=== PATIENT | female | born 1945 | race Caucasian/White ===

== ENCOUNTER 2019-02-15 18:20 | Emergency (ER) | payer OTHER ==
[~2019-02-15] VITALS: Ht 167.6 cm; Wt 108.0 kg
[~2019-02-15 18:20] MED LIST: AMLO10TA8 PO; ASCO500T2 PO; ASPI-612 PO; CA C1TAB28 PO; CARV12.511 PO; GLUC-12 PO; INSU100I17 SQ; INSU100I18 SQ; LEVO750T31 PO; LOSA100T14 PO; LOVA40TA2 PO; OMEG300C PO; VITA1TAB19 PO
--- NOTE | 2019-02-15 21:34 | RAD ---
KUB INDICATION: Constipation. COMPARISON: None. TECHNIQUE: Supine view of the abdomen was obtained. FINDINGS: Abdomen: Nonobstructive bowel gas pattern. No free air on this limited supine image. Moderate colonic stool burden Lower Chest: Limited view of the lower chest demonstrates no acute abnormality. Skeletal Structures and Soft Tissues: Incompletely characterized lumbar spondylosis. IMPRESSION: Nonobstructive bowel gas pattern. Moderate colonic stool burden. Electronically signed by: Maurice Castellon MD (02/15/2019 9:31 PM) [facility]
[2019-02-15 22:13] VITALS: BP 186/74
--- NOTE | 2019-02-15 22:51 | PHYS DOC ---
Past Medical History Past Medical History: Asthma, Diabetes-Type II, Endometriosis, High Laila sterol, Hypertension, MRSA, Pneumonia, Other Additional Past Medical Histor: BLADDER INFECTION (TAQUERIA PADILLA APRN) Past Surgical History: Hysterectomy (TAQUERIA PADILLA APRN) Alcohol Use: None Drug Use: None (TAQUERIA PADILLA APRN) Attending Signature I have participated in the care of this patient and I have reviewed and agree with all pertinent clinical information above including history, exam, and recommendations. (TONYA RINCON MD) Adult General Chief Complaint Chief Complaint: CONTISPATION HPI HPI Patient is a 73 year old female, accompanied by her daughters, who presents to the emergency department with complaints of severe rectal pressure. Patient states she has been unable to have a bowel movement for the last 3 days. She denies any rectal bleeding, she reports leaking liquid stool after using a fleets enema at home with no relief of her symptoms. She denies any abdominal pain, nausea, vomiting, dysuria, increased urinary frequency, or hematuria. She denies any complaints of chest pain, palpitations, shortness of breath, or wheezing. Currently she rates her discomfort a 10 out of 10 on the pain scale and describes it as rectal pressure. She denies any alleviating factors. (TAQUERIA PADILLA APRN) Review of Systems Review of Systems Constitutional: Denies fever or chills [] Eyes: Denies redness, or eye pain [] HENT: Denies nasal congestion or sore throat [] Respiratory: Denies cough or shortness of breath [] Cardiovascular: No additional information not addressed in HPI [] GI: Denies abdominal pain, nausea, vomiting, or diarrhea; see HPI : Denies dysuria or hematuria [] Musculoskeletal: Denies back pain Integument: Denies rash or skin lesions [] Neurologic: Denies headache Complete systems were reviewed and found to be within normal limits, except as documented in this note. (TAQUERIA PADILLA APRN) Allergies Allergies Allergies Coded Allergies Type Severity Reaction Last Updated Verified latex Allergy Intermediate 06/29/14 Yes levofloxacin Allergy Unknown 02/15/19 Yes Sulfa (Sulfonamide Antibiotics) Adverse Reaction Severe swelling 07/02/14 Yes (TONYA RINCON MD) Physical Exam Physical Exam Constitutional: Well developed, well nourished, no acute distress, non-toxic appearance. [] HENT: Normocephalic, atraumatic, bilateral external ears normal, nose normal. [] Eyes: PERRLA, EOMI, conjunctiva normal, no discharge. [] Neck: Normal range of motion, no tenderness, supple, no stridor. [] Cardiovascular:Heart rate regular rhythm, no murmur [] Lungs & Thorax: Bilateral breath sounds clear to auscultation [] Abdomen: Bowel sounds normal, soft, no tenderness, no masses, no pulsatile masses. Rectal Exam: Normal tone, Positive control, large amount of fecal impaction present Stool: Brown Skin: Warm, dry, no erythema, no rash. [] Back: No tenderness Extremities: No cyanosis, ROM intact, no edema. [] Neurologic: Alert and oriented X 3, no focal deficits noted. [] Psychologic: Affect normal, judgement normal, mood normal. [] (TAQUERIA PADILLA APRN) Current Patient Data Vital Signs Vital Signs Date Time Temp Pulse Resp B/P (MAP) Pulse Ox O2 Delivery O2 Flow Rate FiO2 02/15/19 22:13 88 20 186/74 (111) 97 Room Air 02/15/19 19:05 98.8 98.8 (TONYA RINCON MD) EKG EKG [] (TAQUERIA PADILLA APRN) Radiology/Procedures Radiology/Procedures PROCEDURE: KUB KUB INDICATION: Constipation. COMPARISON: None. TECHNIQUE: Supine view of the abdomen was obtained. FINDINGS: Abdomen: Nonobstructive bowel gas pattern. No free air on this limited supine image. Moderate colonic stool burden Lower Chest: Limited view of the lower chest demonstrates no acute abnormality. Skeletal Structures and Soft Tissues: Incompletely characterized lumbar spondylosis. IMPRESSION: Nonobstructive bowel gas pattern. Moderate colonic stool burden.[] (TAQUERIA PADILLA APRN) Course & Med Decision Making Course & Med Decision Making Pertinent Labs and Imaging studies reviewed. (See chart for details) dx: fecal impaction, constipation A large amount of stool was removed during the rectal exam by myself. Patient reported relief of rectal pressure following manual disimpaction. KUB revealed a normal bowel gas pattern with a large amount of stool present. Patient was give n a milk of molasses enema in the emergency department that was followed by a large bowel movement. Patient reported relief of her symptoms and feeling better after these interventions. The patient was encouraged to take 1 capful of MiraLAX in 8 ounces of water or juice twice daily until her stools are normal. She was also instructed to follow-up with her primary care doctor in the next 1- 2 days. Return to the ER symptoms worsen. Patient verbalized an understanding of home care, medications, follow-up, and return to ED instructions and was in agreement with the plan of care. [] (TAQUERIA PADILLA APRN) Dragon Disclaimer Dragon Disclaimer This electronic medical record was generated, in whole or in part, using a voice recognition dictation system. (TAQUERIA PADILLA APRN) Departure Departure Impression: Primary Impression: Constipation Additional Impression: Fecal impaction in rectum Disposition: 01 HOME, SELF-CARE Condition: STABLE Referrals: MONICO NGUYEN MD (PCP) Patient Instructions: Constipation, Adult, [id number], Fecal Impaction Additional Instructions: Take 1 capful of MiraLAX in 8 ounces of water or juice twice a day until your stools have normalized. Follow-up with your primary care doctor in 1-2 days for reevaluation. Return to the ER if her symptoms worsen. Problem Qualifiers Primary Impression: Constipation Constipation type: unspecified constipation type Qualified Codes: K59.00 - Constipation, unspecified TAQUERIA PADILLA APRN Feb 15, 2019 22:51 TONYA RINCON MD Feb 16, 2019 04:01
[2019-02-19] MEDS ORDERED: VENTOLIN HFA18 GM INH (20:40)
[2019-02-19] MEDS ORDERED: ASPI-630 PO (20:40)
[2019-02-19] MEDS ORDERED: INSU100C4 SQ (20:40)
[2019-02-19] MEDS ORDERED: HYDR12.58 PO (20:40)
[2019-02-19] MEDS ORDERED: LOSA-73 PO (20:40)
[2019-02-19] MEDS ORDERED: ATOR20TA58 PO (20:40)
[2019-02-19] MEDS ORDERED: OMEG-165 PO (20:40)
[2019-02-19] MEDS ORDERED: INSU100V13 SQ (20:40)
[2019-02-19] MEDS ORDERED: GLUC1CAP18 PO (20:40)
[2019-02-19] MEDS ORDERED: METF500T16 PO (20:40)
[2019-02-19] MEDS ORDERED: UBID100T5 PO (20:40)
[2019-02-19] MEDS ORDERED: MONT10TA10 PO (23:14)
[2019-02-22] MEDS ORDERED: INSU100I11 SQ (12:18)
[2019-02-22] MEDS ORDERED: CEFD300C PO (12:18)
[2019-02-22] MEDS ORDERED: BUDE0.5A NEB (12:18)
[2019-02-22] MEDS ORDERED: LACT1CAP19 PO (12:18)
== END 2019-02-15 22:56 | disposition home or self-care (01) ==
LOC: ER 18:20
DX: K56.41 Fecal impaction (principal); E11.9 Type 2 diabetes mellitus without complications; E78.00 Pure hypercholesterolemia, unspecified; I10 Essential (primary) hypertension; J45.909 Unspecified asthma, uncomplicated; Z86.14 Personal history of Methicillin resistant Staphylococcus aureus infection; Z86.19 Personal history of other infectious and parasitic diseases; Z90.710 Acquired absence of both cervix and uterus; Z88.1 Allergy status to other antibiotic agents; Z88.2 Allergy status to sulfonamides; Z91.040 Latex allergy status
CPT/HCPCS: 74018; 96365; 96366; 96375; 96376; 99284; 99285-25

== ENCOUNTER 2019-02-26 12:22 | Emergency (ER) | payer OTHER ==
[~2019-02-26] VITALS: Ht 167.6 cm; Wt 106.6 kg
[~2019-02-26 12:22] MED LIST changes: +ASPI-630 PO; +ATOR20TA58 PO; +BUDE0.5A NEB; +CEFD300C PO; +GLUC1CAP18 PO; +HYDR12.58 PO; +INSU100C4 SQ; +INSU100I11 SQ; +INSU100V13 SQ; +LACT1CAP19 PO; +LOSA-73 PO; +METF500T16 PO; +MONT10TA10 PO; +OMEG-165 PO; +UBID100T5 PO; +VENTOLIN HFA18 GM INH
[2019-02-26 12:59] LABS: BILIRUBIN,URINE NEGATIVE (NEG); CLARITY,URINE CLEAR; COLOR,URINE YELLOW; NITRITE,URINE NEGATIVE (NEG); PH,URINE 6.5; PROTEIN,URINE 100 mg/dL (NEG-TRACE); UROBILINOGEN,URINE 0.2 mg/dL (0.2 mg/dL)
--- NOTE | 2019-02-26 12:59 | PHYS DOC ---
Past Medical History Past Medical History: Asthma, Bronchitis, COPD, Diabetes-Type II, Endometriosis, High Cholesterol, Hypertension, MRSA, Pneumonia, Other Additional Past Medical Histor: BLADDER INFECTION, CHRONIC BACK Past Surgical History: Hysterectomy Alcohol Use: None Drug Use: None Adult General Chief Complaint Chief Complaint: DIZZY/LIGHT HEADED HPI HPI Patient is a 74 year old female with recent hospital admission for acute bronchitis with discharge 3 days ago who presents with dizziness and lightheadedness upon standing. Patient states she also felt confused earlier today. Symptoms are now improved. Denies headache, chest pain palpitations shortness of breath. Denies unilateral weakness, loss of sensation or leaning to one side. No fevers chills, nausea vomiting or sweats. No urinary urgency frequency or burning. Denies history of cardiac arrhythmia. This report low back pain radiating to left leg. Patient is a [id number] diabetic and ate prior to ED arrival.She is accompanied at bedside by her daughter. [] Review of Systems Review of Systems ROS as per HPI. All other ROS are negative. All other systems were reviewed and found to be within normal limits, except as documented in this note. Current Medications Current Medications Current Medications Medications (Trade) Dose Ordered Sig/Lavell Start Time Stop Time Status Last Admin Dose Admin Furosemide (Lasix) 40 mg 1X ONCE 02/26/19 14:15 02/26/19 14:16 DC 02/26/19 14:42 40 MG Allergies Allergies Allergies Coded Allergies Type Severity Reaction Last Updated Verified latex Allergy Intermediate 06/29/14 Yes levofloxacin Allergy Intermediate 02/19/19 Yes Sulfa (Sulfonamide Antibiotics) Adverse Reaction Severe swelling 07/02/14 Yes Physical Exam Physical Exam Constitutional: Well developed, well nourished, no acute distress, non-toxic appearance. [] HENT: Normocephalic, atraumatic, bilateral external ears normal, oropharynx moist, no oral exudates, nose normal. [] Eyes: PERRLA, EOMI, conjunctiva normal, no discharge. [] Neck: Normal range of motion, no tenderness, supple, no stridor. [] Cardiovascular:Heart rate regular rhythm, no murmur [] Lungs & Thorax: Bilateral breath sounds clear to auscultation [] Abdomen: Bowel sounds normal, soft, no tenderness, no masses, no pulsatile masses. [] Skin: Warm, dry, no erythema, no rash. [] Back: No tenderness, no CVA tenderness. [] Extremities: No tenderness, no cyanosis, no clubbing, ROM intact, no edema. [] Neurologic: Alert and oriented X 3, normal motor function, normal sensory function, no focal deficits noted. [] Psychologic: Affect normal, judgement normal, mood normal. [] Current Patient Data Vital Signs Vital Signs Date Time Temp Pulse Resp B/P (MAP) Pulse Ox O2 Delivery O2 Flow Rate FiO2 02/26/19 15:30 76 91 02/26/19 15:00 18 02/26/19 12:44 98.2 175/62 (99) Room Air 98.2 Lab Values Laboratory Tests Test 02/26/19 12:36 02/26/19 12:54 Urine Collection Type Unknown Urine Color Yellow Urine Clarity Clear Urine pH 6.5 Urine Specific [place] 1.015 Urine Protein 100 mg/dL (NEG-TRACE) Urine Glucose (UA) 100 mg/dL (NEG) Urine Ketones (Stick) Negative mg/dL (NEG) Urine Blood Negative (NEG) Urine Nitrite Negative (NEG) Urine Bilirubin Negative (NEG) Urine Urobilinogen Dipstick 0.2 mg/dL (0.2 mg/dL) Urine Leukocyte Esterase Moderate (NEG) Urine RBC 0 /HPF (0-2) Urine WBC 1-4 /HPF (0-4) Urine Squamous Epithelial Cells Few /LPF Urine Bacteria Few /HPF (0-FEW) White Blood Count 9.9 x10^3/uL (4.0-11.0) Red Blood Count 3.57 x10^6/uL (3.50-5.40) Hemoglobin 10.4 g/dL (12.0-15.5) L Hematocrit 31.3 % (36.0-47.0) L Mean Corpuscular Volume 88 fL (79-100) Mean Corpuscular Hemoglobin 29 pg (25-35) Mean Corpuscular Hemoglobin Concent 33 g/dL (31-37) Red Cell Distribution Width 13.7 % (11.5-14.5) Platelet Count 280 x10^3/uL (140-400) Neutrophils (%) (Auto) 70 % (31-73) Lymphocytes (%) (Auto) 16 % (24-48) L Monocytes (%) (Auto) 8 % (0-9) Eosinophils (%) (Auto) 5 % (0-3) H Basophils (%) (Auto) 1 % (0-3) Neutrophils # (Auto) 6.9 x10^3/uL (1.8-7.7) Lymphocytes # (Auto) 1.6 x10^3/uL (1.0-4.8) Monocytes # (Auto) 0.8 x10^3/uL (0.0-1.1) Eosinophils # (Auto) 0.5 x10^3/uL (0.0-0.7) Basophils # (Auto) 0.1 x10^3/uL (0.0-0.2) Sodium Level 140 mmol/L (136-145) Potassium Level 3.7 mmol/L (3.5-5.1) Chloride Level 100 mmol/L (98-107) Carbon Dioxide Level 33 mmol/L (21-32) H Anion Gap 7 (6-14) Blood Urea Nitrogen 15 mg/dL (7-20) Creatinine 1.1 mg/dL (0.6-1.0) H Estimated GFR (Cockcroft-Gault) 48.3 BUN/Creatinine Ratio 14 (6-20) Glucose Level 261 mg/dL (70-99) H Calcium Level 9.2 mg/dL (8.5-10.1) Magnesium Level 1.4 mg/dL (1.8-2.4) L Total Bilirubin 0.4 mg/dL (0.2-1.0) Aspartate Amino Transferase (AST) 10 U/L (15-37) L Alanine Aminotransferase (ALT) 6 U/L (14-59) L Alkaline Phosphatase 83 U/L (46-116) Troponin I Quantitative < 0.017 ng/mL (0.000-0.055) PX-Miz-N-Type Natriuretic Peptide 887 pg/mL (0-449) H Total Protein 7.2 g/dL (6.4-8.2) Albumin 2.6 g/dL (3.4-5.0) L Albumin/Globulin Ratio 0.6 (1.0-1.7) L Laboratory Tests 02/26/19 12:54 Laboratory Tests 02/26/19 12:54 EKG EKG [EKG: reviewed] Radiology/Procedures Radiology/Procedures CXR: No acute disease per radiology report.] Course & Med Decision Making Course & Med Decision Making Pertinent Labs and Imaging studies reviewed. (See chart for details) [Symptoms improved with treatment. Patient ambulatory with steady gait prior to departure. Will continue treatment for CHF with PCP follow-up. Return precautions reviewed. Patient verbalizes understanding and agreement discharge prior to departure.] Dragon Disclaimer Dragon Disclaimer This electronic medical record was generated, in whole or in part, using a voice recognition dictation system. Departure Departure Impression: Primary Impression: Dizziness Additional Impression: Congestive heart failure Disposition: HOME, SELF-CARE Condition: STABLE Referrals: MONICO NGUYEN MD (PCP) Scripts Furosemide (LASIX) 20 Mg Tablet 1 TAB PO DAILY for 3 Days, #3 TAB 0 Refills Prov: UBALDO BARAHONA DO 02/26/19 Problem Qualifiers UBALDO BARAHONA DO Feb 26, 2019 12:59
[2019-02-26 13:06] LABS: BASO # 0.1 x10^3/uL (0.0-0.2); BASO % 1 % (0-3); EOS # 0.5 x10^3/uL (0.0-0.7); EOS % 5 % (0-3); HEMATOCRIT 31.3 % (36.0-47.0); HEMOGLOBIN 10.4 g/dL (12.0-15.5); LYMPH # 1.6 x10^3/uL (1.0-4.8); LYMPH % 16 % (24-48); MEAN CORPUSCULAR HEMOGLOBIN 29 pg (25-35); MEAN CORPUSCULAR HGB CONC 33 g/dL (31-37); MEAN CORPUSCULAR VOLUME 88 fL (79-100); MONO # 0.8 x10^3/uL (0.0-1.1); MONO % 8 % (0-9); NEUT # 6.9 x10^3/uL (1.8-7.7); NEUT % 70 % (31-73); PLATELET COUNT 280 x10^3/uL (140-400); RED BLOOD COUNT 3.57 x10^6/uL (3.50-5.40); RED CELL DISTRIBUTION WIDTH 13.7 % (11.5-14.5); WHITE BLOOD COUNT 9.9 x10^3/uL (4.0-11.0)
[2019-02-26 13:10] LABS: BACTERIA,URINE FEW /HPF (0-FEW); RBC,URINE 0 /HPF (0-2); SQUAMOUS EPITHELIAL CELL,UR FEW /LPF
[2019-02-26 13:17] LABS: CALCIUM 9.2 mg/dL (8.5-10.1); CREATININE 1.1 mg/dL (0.6-1.0); GFR 48.3; POTASSIUM 3.7 mmol/L (3.5-5.1)
[2019-02-26 13:23] LABS: ALBUMIN 2.6 g/dL (3.4-5.0); ALBUMIN/GLOBULIN RATIO 0.6 (1.0-1.7); MAGNESIUM 1.4 mg/dL (1.8-2.4); TOTAL BILIRUBIN 0.4 mg/dL (0.2-1.0); TOTAL PROTEIN 7.2 g/dL (6.4-8.2)
--- NOTE | 2019-02-26 13:37 | RAD ---
CHEST AP ONLY INDICATION: Chest pain. COMPARISON STUDY: 02/19/2019. FINDINGS: Lungs: Low lung volume. No pulmonary mass or consolidation. The tracheobronchial tree and hilar structures are normal. Pleura: No pleural effusion or pneumothorax. Heart and Mediastinum: Stable cardiomediastinal silhouette and great vessels. IMPRESSION: Low lung volume. No consolidation. Electronically signed by: Maurice Castellon MD (02/26/2019 1:34 PM) [facility]
[2019-02-26] MEDS ORDERED: FUROSEMIDE 40 MG/4 ML VIAL. IVP ONE (14:15)
[2019-02-26 15:00] VITALS: BP 182/77
[2019-02-26] MEDS ORDERED: FURO-69 PO (15:56)
--- NOTE | 2019-02-28 06:52 | EKG ---
[facility] [address] [place] [address] Test Date: 2019-02-26 Test Time: 12:57:37 Pat Name: JJ GIBSON Department: Room: Gender: F Orthopedic Podiatrist: : 1945 Requested By: UBALDO BARAHONA Order Number: [id number] Reading MD: Steve Astudillo MD Measurements Intervals [place] Rate: 83 P: 138 AL: 158 QRS: -52 QRSD: 104 T: 44 QT: 386 QTc: 459 Interpretive Statements SINUS RHYTHM ABNORMAL LEFT AXIS DEVIATION LEFT ANTERIOR FASCICULAR BLOCK LVH WITH REPOLARIZATION ABNORMALITY Electronically Signed On 03-01-2019 10:53:30 [employer]LE[employer]ER by Steve Astudillo MD
== END 2019-02-26 16:06 | disposition home or self-care (01) ==
LOC: ER 12:22
DX: I11.0 Hypertensive heart disease with heart failure (principal); I50.9 Heart failure, unspecified; R42 Dizziness and giddiness; M54.5 Low back pain; G89.29 Other chronic pain; M79.605 Pain in left leg; E11.9 Type 2 diabetes mellitus without complications; J44.9 Chronic obstructive pulmonary disease, unspecified; E78.00 Pure hypercholesterolemia, unspecified; Z86.14 Personal history of Methicillin resistant Staphylococcus aureus infection; Z90.710 Acquired absence of both cervix and uterus; Z98.890 Other specified postprocedural states; Z91.040 Latex allergy status; Z88.1 Allergy status to other antibiotic agents; Z88.2 Allergy status to sulfonamides
CPT/HCPCS: 36415; 71045; 80053; 81001; 82962; 83735; 83880; 84484; 85025; 87086; 93005; 96374; 99285; J1940